=== PATIENT | female | born 1945 | race African-American/Black ===

== ENCOUNTER 2019-01-21 13:53 | Emergency (ER) | payer MEDICARE, MEDICAID ==
[~2019-01-21] VITALS: Ht 172.7 cm; Wt 107.0 kg
[2019-01-21] MEDS ORDERED: PHENYLEPHRINE HCL 0.5% 15ML NASAL SPRAY BOTHNSTRLS STA (14:40)
[2019-01-21] MEDS ORDERED: ACETAMINOPHEN 500MG TABLET PO ONE (15:00)
[2019-01-21] MEDS ORDERED: ONDANSETRON HCL 4MG/2ML INJ IV ONE (15:00)
[2019-01-21 15:11] LABS: CHLORIDE 105 mEq/L (98-107); HEMATOCRIT. 48.5 % (36.0-48.0); HEMOGLOBIN. 15.5 g/dL (12.0-16.0); MEAN CORPUSCULAR VOLUME 81.2 fL (81.0-99.0); MEAN PLATELET VOLUME 9.1 fl (7.4-10.4); PLATELET 194 x1000/uL (130-400); RED BLOOD CELL COUNT 5.98 mill/uL (4.2-5.4); RED CELL DISTRIBUTION WIDTH 16.1 % (11.6-14.6)
[2019-01-21 15:15] LABS: PARTIAL THROMBOPLASTIN TIME 24.6 sec (23.4-31.0); PROTHROMBIN TIME 10.3 sec (9.6-11.0)
[2019-01-21 15:35] LABS: PLATELET ESTIMATE NORMAL
[2019-01-21] MEDS ORDERED: ONDANSETRON 4MG ODT PO ONE (17:00)
[2019-01-21 17:37] VITALS: BP 146/85
== END 2019-01-21 17:50 | disposition home or self-care (01) ==
LOC: ER 14:18
DX: R04.0 Epistaxis (principal); I10 Essential (primary) hypertension; J45.909 Unspecified asthma, uncomplicated
CPT/HCPCS: 36415; 80053; 85025; 85610; 85730; 86850; 86900; 86901; 99283; Q0162